=== PATIENT | male | born 1955 | race Caucasian/White ===

== ENCOUNTER 2024-06-07 21:06 | Emergency (ER) | payer MEDICARE, MEDICAID, SELFPAY ==
[2024-06-07] VITALS (15 sets, daily range): BP systolic 85–118; BP diastolic 61–83; PULSE 62–110; RESP 18–24; TEMP 36.9–38.2; O2SAT 92–100; BMI 23.1
--- NOTE | 2024-06-07 21:49 | HMH.EDGENADL ---
Discharge Plan Disposition Chief Complaint: Wound/Laceration Referrals Follow up/Referrals: Provider,Referral, MD [Primary Care Provider] - See instructions Stand Alone Forms Stand Alone Forms: Transfer Record - ED Instructions Patient Instructions: DI for Laceration Repair Print Language Print Language: Sinhala Discharge ED Provider: Yaya Givens General Adult HPI General Chief complaint: Wound/Laceration Stated complaint: feet and leg pain Time Seen by Provider: 06/07/24 21:37 Mode of Arrival: Wheelchair Source of Information: Patient Description of Symptoms (Recalled from ER Triage Doc. by RN): pt presents for evaluation of bilateral foot pain and wounds. Pt states he has had the wounds chronically for a long time and follows wound care, per family this is the worst they have been History of Present Illness HPI narrative: Patient is a 68-year-old male with past medical history of [id number] diabetes, hypertension, smoker who presents emergency department for evaluation of generally feeling unwell and foot wounds. He has had chronic wounds over his feet for many years however they have both become acutely worse over the last 1 week with significant progression of the wounds on his feet. He can no longer feel his bilateral feet. He has chronic shortness of breath which is a little bit worse than normal. Patient also has a history of pacemaker placement and he takes a water pill but denies history of heart failure. No chest pain reported. No abdominal pain reported. He generally feels unwell. Related Data Allergies Allergy/AdvReac Type Severity Reaction Status Date / Time No Known Allergies Allergy Verified 06/07/24 22:02 [facility] Disclaimer: The information contained in this section may have been updated after the patient was seen, as this information can be updated by other users. Social History Smoking Status: Unknown if ever smoked alcohol intake: never current occupational status: other Travel in the last 8 weeks: None ROS Obtained: Yes Systems reviewed as appropriate & no additional complaints except as documented Physical Exam General General appearance: alert and in no apparent distress Head Head exam: atraumatic and normocephalic Eye Eye exam: Present PERRL ENT ENT exam: Present mucous membranes moist Neck Neck exam: Present normal inspection Chest Chest inspection: Present normal inspection and symmetric chest wall rise Respiratory Respiratory exam: Present wheezes (Slight expiratory wheezes diffusely, good air movement); Absent normal lung sounds bilaterally, respiratory distress or stridor Cardiovascular Cardiovascular exam: Present regular rate and normal rhythm Abdominal Exam Abdominal exam: Present soft; Absent tenderness Extremities Exam Extremities exam: Present tenderness (Sensation level just above the ankle bilaterally.) and other (Bilateral feet are frankly edematous and discolored with wet gangrene left greater than right. A sensate from the ankle down bilaterally, muscles are rigid. There is scattered erythema of the bilateral lower extremities.) Neurological Exam Neurological exam: Present alert Psychiatric Psychiatric exam: Present normal affect Skin Skin exam: Present dry and other (Cool) Medical Decision Making Medical Records Screening: Per USPSTF and CDC recommendations, given the prevalence of disease in our region, it is our hospital?s policy to screen for HIV and viral Hepatitis for all patients aged 18 and over and those with ongoing risk factors. Maikel Inquiry Pt receiving controlled substance: No Vital Signs: 06/07/24 21:30 06/07/24 21:40 06/07/24 21:45 Temperature 98.5 F Temperature Source Temporal Artery Scan Pulse Rate Pulse Rate [Right] 73 Respiratory Rate 18 Blood Pressure 99/79 L 110/66 Blood Pressure [Right Arm] 85/61 L Blood Pressure Mean [Right Arm] 69 Blood Pressure Source [Right Arm] Manual Cuff/ Palpation 02 Sat by Pulse Oximetry 92 L Oxygen Delivery Method Room Air Oxygen Flow Rate (LPM) 06/07/24 21:50 06/07/24 22:13 06/07/24 22:14 Temperature 100.0 F H 100.0 F H Temperature Source Pulse Rate 62 99 H 67 Pulse Rate [Right] Respiratory Rate 22 18 Blood Pressure 115/83 109/73 L Blood Pressure [Right Arm] Blood Pressure Mean [Right Arm] Blood Pressure Source [Right Arm] 02 Sat by Pulse Oximetry 100 96 99 Oxygen Delivery Method Nasal Cannula Oxygen Flow Rate (LPM) 1 Lab Data Lab Results 06/07/24 21:46: Sodium 133 L, Potassium 3.8, Chloride 95 L, Carbon Dioxide 34 H, Anion Gap 7.8, BUN 15, Creatinine 0.80, Estimated Creat Clear 85, Estimated GFR 96, Est GFR ( Amer) 117, Glucose 107 H, Calcium 9.5, Total Bilirubin 1.3, AST 29, ALT 20, Alkaline Phosphatase 83, Troponin I 0.03, Total Protein 7.6, Albumin 3.7, Globulin 3.9 H, Albumin/Globulin Ratio 0.9 L 06/07/24 21:50: WBC 10.7, RBC 5.08, Hgb 11.2 L, Hct 36.8 L, MCV 72.4 L, MCH 22.0 L, MCHC 30.4 L, RDW 18.7 H, Plt Count 334, MPV 9.2, Neut % (Auto) 63.7, Lymph % (Auto) 23.7, [place] % (Auto) 10.8 H, Eos % (Auto) 0.6, Baso % (Auto) 0.8, Neut # (Auto) 6.8, Lymph # (Auto) 2.5, [place] # (Auto) 1.2 H, Eos # (Auto) 0.1, Baso # (Auto) 0.1, VBG pH 7.42 H, VBG pCO2 41.8, VBG pO2 26.9 L, VBG HCO3 26.6, VBG Total CO2 27.9 H, VBG O2 Saturation 44.5 L, VBG Base Excess 2.2, VBG Lactic Acid 1.7 06/07/24 21:50 06/07/24 21:46 Orders (Tests/Meds): ED MEDICATIONS Generic Name Dose Route Start Last Admin Trade Name Freq PRN Reason Stop Dose Admin Vancomycin/PEG/NADA/Lysine/Water 1.5 gm in 300 mls @ 150 mls/hr 06/07/24 22:15 06/07/24 22:23 Vancomycin 1.5gm/300ml (Peg) Premix IV 06/08/24 00:14 150 mls/hr ONCE ONE Administration Clindamycin Phosphate 600 mg in 50 mls @ 100 mls/hr 06/07/24 22:15 06/07/24 22:26 Clindamycin 600mg/50ml D5w Premix IV 06/07/24 22:44 100 mls/hr ONCE ONE Administration Piperacillin Sod/Tazobactam 100 mls @ 200 mls/hr 06/07/24 22:30 06/07/24 22:21 Sod 4.5 gm/ Sodium Chloride IV 06/17/24 22:29 200 mls/hr Q6H JANIE Administration Miscellaneous 1 each 06/07/24 22:00 Vancomycin Consult Request NOTAPPLIC 07/07/24 21:59 CONSULT PHARMACY JANIE Discontinued Medications Generic Name Dose Route Start Last Admin Trade Name Freq PRN Reason Stop Dose Admin Acetaminophen 1,000 mg 06/07/24 22:27 06/07/24 22:30 Acetaminophen 1,000mg/100ml Vial IV 06/07/24 22:28 1,000 mg ONCE ONE Administration Albuterol/Ipratropium 3 ml 06/07/24 21:59 06/07/24 22:06 Ipratropium/Albuterol 3 Ml Neb IH 06/07/24 22:00 3 ml ONCE ONE Administration Lactated Ringer's 500 mls @ 999 mls/hr 06/07/24 21:51 06/07/24 22:00 Lactated Ringer's 500ml IV 06/07/24 22:21 999 mls/hr .Q31M ONE Administration ORDERS Category Date Time Status CXR --portable [XR chest portable] Stat Exams 06/07/24 21:50 Taken Fibula/tibia XR left 2 views [XR tibia fibula LT 2V] Exams 06/07/24 22:02 Taken Stat Tibia/fibula XR right 2 views [XR tibia fibula RT 2V] Exams 06/07/24 22:02 Taken Stat CBC w/Auto Diff [Complete Blood Count Auto Diff] Stat Lab 06/07/24 21:50 Completed CMP [Comprehensive Metabolic Panel] Stat Lab 06/07/24 21:46 Completed Trop I [Troponin I] Stat Lab 06/07/24 21:46 Completed Troponin I Q3H Lab 06/08/24 01:00 Ordered Troponin I Q3H Lab 06/08/24 04:00 Ordered VBG [Venous Blood Gas] Stat RT 06/07/24 21:50 Completed ECG Data Tracing #1: Independently interpreted by me rate is 116, rhythm is irregular, atrial fibrillation, no ST elevation in anatomical contiguous leads, QTc 431. Medical Decision Narrative: In summary patient is 68-year-old male past medical history described above presents emergency department for evaluation of bilateral lower extremity wounds. Patient is hypotensive 85/61 upon arrival, [id number] ultrasound at bedside shows globally decreased ejection fraction. Patient clinically has wet gangrene of his feet left greater than right. I have high suspicion for necrotizing soft tissue infection. Gentle crystalloid resuscitation will be conducted with 500 cc given that he has globally decreased ejection fraction. For maintenance of mean arterial pressures greater than 65 we will start Levophed if required. Broad-spectrum antibiotics with vancomycin, Zosyn, clindamycin will be conducted. Broad hematologic labs to be obtained. Chest x-ray EKG will be obtained. From an oxygenation standpoint patient was difficult to read given that he is in cold shock with decreased ejection fraction, started on nonrebreather ultimately weaned down to 2 L nasal cannula. Will give a DuoNeb and reassess to see if his wheezing is from obstructive lung disease or if it is from heart failure. Full sepsis crystalloid resuscitation was considered but will obviously be deferred in setting of heart failure. Imaging of the lower extremities was considered but will only delay patient's care and the case was discussed with [facility] Dr. Ean Hernandez who graciously accepted patient for continued evaluation at this time. Ultimately I suspect that patient is in cold shock that has made his lower extremity wounds worse and gangrenous he is on appropriate broad-spectrum antibiotics with gram-negative gram-positive and anaerobic coverage. He will not be given aggressive crystalloid resuscitation given that he is in heart failure. Patient was somewhat volume responsive blood pressure now 109/73. New atrial fibrillation it may be that he is showering emboli to his lower extremities making things worse however we will not delay care and will transfer to higher level of care at this time patient will be transported by air EVAC at this time. Critical Care Critical Care Time Critical Care Time: Yes Attestation: On 06/07/24, the high probability of a clinically significant, sudden or life threatening deterioration of the following system(s) required my full and direct attention, intervention and personal management. The time I documented below is in addition to time spent performing reported procedures but includes the following listed in this critical care notation. Total Time Total Critical Care Time: 45
--- NOTE | 2024-06-07 21:50 | XR_ITS ---
PROCEDURE INFORMATION: Exam: XR Chest Exam date and time: 06/07/2024 10:04 PM Age: 68 years old Clinical indication: Other: SOB, necrotic feet TECHNIQUE: Imaging protocol: Radiologic exam of the chest. Views: 1 view. COMPARISON: No relevant prior studies available. FINDINGS: Lungs: Patchy right mid to lower lung zone opacities. Pleural spaces: Moderately large to large left pleural effusion. Moderate right pleural effusion. Heart/Mediastinum: Unremarkable. No cardiomegaly. Bones/joints: Unremarkable. IMPRESSION: 1. Bilateral pleural effusions. 2. Right mid to lower lung zone opacities.
[2024-06-07 21:56] LABS: Basophils # 0.1 K/mm3 (0-0.2); Basophils % 0.8 % (0.1-2.0); Eosinophils # 0.1 K/mm3 (0.0-0.4); Eosinophils % 0.6 % (0.1-12.0); Hematocrit 36.8 % (42.0-52.0); Hemoglobin 11.2 g/dL (14.1-18.0); Lymphocytes # 2.5 K/mm3 (0.7-4.5); Lymphocytes % 23.7 % (10-50); Mean Corpuscular HGB Conc 30.4 g/dL (31.8-35.4); Mean Corpuscular Volume 72.4 fl (80-94); Mean Platelet Volume 9.2 fl (7.4-10.4); Monocytes # 1.2 K/mm3 (0.1-1.0); Monocytes % 10.8 % (1.7-9.3); Neutrophils # 6.8 K/mm3 (1.8-7.8); Neutrophils % 63.7 % (37.0-80.0); Platelet Count 334 K/mm3 (142-424); Red Blood Count 5.08 M/mm3 (4.60-6.20); Red Cell Distribution Width 18.7 % (11.5-17.5); White Blood Count 10.7 K/mm3 (4.8-10.8)
--- NOTE | 2024-06-07 21:58 | ECG_ITS ---
APPROVED REPORT Exam: Resting ECG HR:116 bpm ECG Measurements Heart Rate 116 AXES QRSd 131 QRS 10 QT 362 T 128 QTc 431 Conclusion ATRIAL FIBRILLATION WITH RAPID VENTRICULAR RESPONSE INDETERMINATE AXIS INTRAVENTRICULAR CONDUCTION DELAY [130+ ms QRS DURATION] ANTEROLATERAL MYOCARDIAL INFARCTION , OF INDETERMINATE AGE [40+ ms Q WAVE IN I/aVL/V3-V6] ABNORMAL ECG Electronically signed by : MANDO VANESSA, 06/07/2024 23:37:45
[2024-06-07] MEDS: RINGERS SOLUTION,LACTATED 500 ML 999 ML IV (22:00)
--- NOTE | 2024-06-07 22:01 | PC.NURSE ---
[facility] called for possible transfer.
--- NOTE | 2024-06-07 22:02 | XR_ITS ---
PROCEDURE INFORMATION: Exam: XR Right Tibia and Fibula Exam date and time: 06/07/2024 10:04 PM Age: 68 years old Clinical indication: Other: Necrotizing infection TECHNIQUE: Imaging protocol: Radiologic exam of the right tibia and fibula. Views: 2 views. COMPARISON: No relevant prior studies available. FINDINGS: Bones/joints: No fracture. No periosteal reaction. No erosive changes. Normal alignment. Soft tissues: No air. No radiopaque foreign body. IMPRESSION: No acute findings identified.
--- NOTE | 2024-06-07 22:02 | XR_ITS ---
PROCEDURE INFORMATION: Exam: XR Left Tibia and Fibula Exam date and time: 06/07/2024 10:04 PM Age: 68 years old Clinical indication: Other: Necrotizing infection TECHNIQUE: Imaging protocol: Radiologic exam of the left tibia and fibula. Views: 2 views. COMPARISON: No relevant prior studies available. FINDINGS: Bones/joints: No fracture. No periosteal reaction. No erosive changes. Normal alignment. Soft tissues: No air. No radiopaque foreign body. IMPRESSION: No acute findings identified.
[2024-06-07] MEDS: IPRATROPIUM/ALBUTEROL 3 ML NEB IH (22:06)
[2024-06-07 22:14] LABS: Chloride 95 mmol/L (98-107)
[2024-06-07 22:15] LABS: Albumin Level 3.7 g/dl (3.5-5.0); Potassium 3.8 mmoL/L (3.5-5.1); Sodium 133 mmol/L (136-145)
[2024-06-07 22:17] LABS: Alanine Aminotransferase 20 U/L (12-78); Alkaline Phosphatase 83 U/L (38-126); Anion Gap 7.8 mEq/L (5-15); Aspartate Amino Transferase 29 U/L (17-59); Bilirubin,Total 1.3 mg/dl (0.2-1.3); Blood Urea Nitrogen 15 mg/dl (9-20); Carbon Dioxide 34 mmol/L (22.0-30.0); Creatinine Clearance Estimated 85 mL/min (50-200); Estimated Glomerular Filt Rate 96 ml/min (>60); GFR (African American) 117 ML/MIN (>60); Globulin 3.9 g/dL (1.3-3.2); Total Protein,Serum 7.6 g/dl (6.3-8.2)
[2024-06-07 22:18] LABS: Lactate Venous 1.7 mmol/L (0.4-2.0); VBG Base Excess 2.2 mmol/L (-2.4-2.3); VBG HCO3 26.6 mmol/L (23-30); VBG Oxygen Saturation 44.5 % (50-70); VBG PCO2 41.8 mmol/L (35-51); VBG PH 7.42 mmol/L (7.31-7.41); VBG PO2 26.9 mmol/L (28-40); VBG Total CO2 27.9 mmol/L (23-27)
[2024-06-07 22:18] LABS: Albumin/Globulin Ratio 0.9 (1.1-1.8); Calcium 9.5 mg/dl (8.4-10.2); Glucose 107 mg/dl (74-100)
[2024-06-07] MEDS: PIPERACILLIN/TAZO 4.5 GM in 0.9 % SODIUM CHLORIDE 100 ML IV (22:21)
[2024-06-07] MEDS: VANCOMYCIN/WATER FOR INJ (PEG) 1.5 GM/300 ML PIGGYBACK IV (22:23)
[2024-06-07] MEDS: CLINDAMYCIN PHOSPHATE/D5W 600 MG/50 ML PIGGYBACK 100 MG IV (22:26)
[2024-06-07 22:29] LABS: Troponin I 0.03 ng/ml (0.00-0.034)
[2024-06-07] MEDS: ACETAMINOPHEN 1,000MG/100ML VIAL 1000 MG IV (22:30)
== END 2024-06-07 23:24 | disposition short-term general hospital (02) ==
PROVIDERS: Emergency Provider Emergency Medicine
DX: L97.509 Non-pressure chronic ulcer of other part of unspecified foot with unspecified severity (principal); M79.671 Pain in right foot; M79.672 Pain in left foot; R20.2 Paresthesia of skin; R06.02 Shortness of breath
CPT/HCPCS: 51702; 71045; 73590; 80053; 82803; 84484; 85025; 93005; 96361; 96365; 96366; 96367; 96368; 96374; 99291; J0131; J0736; J2543; J3372; J7120; J7620